=== PATIENT | male | born 1985 | race Two or more races ===

== ENCOUNTER 2024-01-10 15:49 | Emergency (ER) | payer MEDICARE, OTHER ==
[~2024-01-10] VITALS: Ht 175.3 cm; Wt 117.5 kg
[2024-01-10 15:51] VITALS: BP 131/89; PULSE 112; RESP 18; TEMP 97.9
[2024-01-10 16:25] LABS: BASOPHILS % (AUTO) 0.6 % (0.0-2.0); MEAN CORPUSCULAR HEMOGLOBIN 30.9 pg (26.0-34.0); MONOCYTES # (AUTO) 1.3 K/uL (0.1-1.0); MONOCYTES % (AUTO) 6.6 % (2.0-9.0)
[2024-01-10 16:30] LABS: EOSINOPHILS % (AUTO) 2.2 % (1.0-6.0); HEMATOCRIT 43.5 % (41-53); MEAN CORPUSCULAR HGB CONC 34.5 G/dL (31.0-37.0); MEAN CORPUSCULAR VOLUME 90 fL (80-100); NEUTROPHILS # (AUTO) 16.4 K/uL (1.8-7.7); NEUTROPHILS % (AUTO) 80.6 % (40.0-70.0); PLATELET COUNT (AUTO) 324 K/uL (150-450); RED BLOOD CELL COUNT(AUTO) 4.85 MIL/uL (4.50-5.90); RED CELL DISTRIBUTION WIDTH 14.2 % (11.5-14.5); WHITE BLOOD COUNT (AUTO) 20.4 K/uL (4.5-11.0)
[2024-01-10 16:35] LABS: ANION GAP 13 mmol/L (8-16); CALCIUM, TOTAL 8.6 mg/dL (8.8-10.5); CARBON DIOXIDE 22 mmol/L (22-29); CHLORIDE 101 mmol/L (98-107); CREATININE 1.04 mg/dL (0.60-1.30); GLOMERULAR FILTR. RATE CALC > 60 mL/min (>60); GLUCOSE,RANDOM 123 mg/dL (70-110); SODIUM SERUM 136 mmol/L (136-145); UREA NITROGEN, BLOOD 8 mg/dL (7-18)
[2024-01-10] MEDS ORDERED: SODIUM CHLORIDE 0.9% 100 ML ONE (16:38)
[2024-01-10] MEDS ORDERED: IOHEXOL 300 MG/ML 100 ML VIAL ONE (16:38)
[2024-01-10 16:41] LABS: ALANINE AMINOTRANSFERASE 35 U/L (12-78); ALBUMIN 3.4 g/dL (3.4-5.0); ALKALINE PHOSPHATASE 109 U/L (46-116); ASPARTATE AMINOTRANSFERASE 19 U/L (15-37); BILIRUBIN,TOTAL 0.9 mg/dL (0.1-1.0); TOTAL PROTEIN, SERUM 8.4 g/dL (6.4-8.2)
[2024-01-10] MEDS: ACETAMINOPHEN 500 MG TABLET PO ONE (17:22)
[2024-01-10] MEDS: SODIUM CHLORIDE 0.9% 1,000 ML IV ONE (17:22)
[2024-01-10] MEDS: MORPHINE SULFATE 2 MG/ML SYRINGE IVP ONE (17:22)
[2024-01-10] MEDS: ONDANSETRON HCL 4 MG/2 ML VIAL IVP ONE (17:22)
[2024-01-10 18:16] LABS: APPEARANCE,URINE CLEAR (CLEAR); BILIRUBIN,URINE NEGATIVE (NEGATIVE); COLOR,URINE YELLOW (YELLOW); GLUCOSE, URINE (UA) NEGATIVE (NEGATIVE); KETONES,URINE NEGATIVE (NEGATIVE); LEUKOCYTE ESTERASE ,URINE MODERATE (NEGATIVE); NITRATE,URINE NEGATIVE (NEGATIVE); OCCULT BLOOD,URINE NEGATIVE (NEGATIVE); PROTEIN,URINE 30-70 mg/dL (NEGATIVE); UROBILINOGEN,URINE <=1.0 mg/dL (<=1.0)
[2024-01-10 18:19] LABS: SPECIFIC GRAVITIY, URINE > 1.050 (1.003-1.030)
[2024-01-10] MEDS ORDERED: DOXY-354 PO (18:32)
[2024-01-10] MEDS ORDERED: ACET-3385 PO (18:32)
[2024-01-10] MEDS ORDERED: LEVO-72 PO (18:32)
[2024-01-10] MEDS: DOXYCYCLINE HYCLATE 100 MG TABLET PO ONE (18:44)
[2024-01-10] MEDS: LEVOFLOXACIN 500 MG TABLET PO ONE (18:44)
[2024-01-10] MEDS: CefTRIAXone SODIUM 500 MG in DEXTROSE 5%-WATER 50 ML IV ONE (18:51)
[2024-01-10 19:08] LABS: BACTERIA,URINE None Seen /HPF (None Seen); RBC,URINE None Seen /HPF (0-2); SQUAMOUS EPITHELIAL CELL,UR Few /LPF (None Seen)
== END 2024-01-10 18:46 | disposition home or self-care (01) ==
LOC: EMS 15:50
DX: N45.1 Epididymitis (principal)
CPT/HCPCS: 99285; 74177; 96365; 96375; 96361; 80053; 81001; 85025; 36415; 87086; 87186; 76870; 87491; 87591; J0696; J2270; J2405; J7060; J7030; J7050; Q9967